=== PATIENT | male | born 1985 | race Caucasian/White ===

== ENCOUNTER 2020-07-09 02:41 | Outpatient (CLI) | payer OTHER, SELFPAY ==
[2020-07-09 23:12] LABS: SARS-CoV-2 RNA PCR Negative
== END 2020-07-09 02:42 | disposition home or self-care (01) ==
LOC: ANHCOVIDDT 02:41
PROVIDERS: PCP Family Medicine; Visit Provider Internal Medicine Gastroenterology
DX: Z01.812 Encounter for preprocedural laboratory examination (principal); Z20.828 Contact with and (suspected) exposure to other viral communicable diseases
CPT/HCPCS: 87635; C9803; U0003

== ENCOUNTER 2020-07-12 01:05 | Day surgery (SDC) | payer OTHER, SELFPAY ==
[2020-07-05 16:02] VITALS: BMI 40.2
[2020-07-12 09:58] VITALS: BP 149/91; PULSE 61; RESP 16; TEMP 36.3; O2SAT 98; BMI 42.5
[2020-07-12] MEDS: LACTATED RINGERS 1,000 ML 150 ML IV CONT (10:07)
--- NOTE | 2020-07-12 10:23 | P.PNAN_ITS ---
Anes - Initial Pre Proc Eval Procedure: Operation Date: 07/12/20 11:00 Proposed Procedures p Colonoscopy - Chago Sanchez MD Date/Time: 07/12/20 10:23 Surgeon: Chago Sanchez MD Pre Op Diagnosis: Change In Bowel Habits/ Rectal Bleeding Patient Data Age: 35 Gender: M Height: 5 ft 10 in Weight: 134.4 kg Last Vital Signs Temp 36.3 C L 07/12/20 09:58 Pulse 61 07/12/20 09:58 Resp 16 07/12/20 09:58 BP 149/91 H 07/12/20 09:58 Pulse Ox 98 07/12/20 09:58 Allergies Allergy/AdvReac Type Severity Reaction Status Date / Time No Known Allergies Allergy Verified 07/12/20 09:57 Home Medications Medication Instructions Recorded Confirmed Type lorazepam 0.5 mg tablet 0.5 mg PO BID PRN 08/15/19 07/05/20 History citalopram 10 mg tablet See Rx Instructions .ROUTE 02/06/20 07/05/20 Rx .COMPLEX #90 tablet lisinopril 20 See Rx Instructions .ROUTE 04/20/20 07/05/20 Rx mg-hydrochlorothiazide 12.5 mg .COMPLEX #90 tablet tablet pantoprazole 40 mg tablet,delayed See Rx Instructions .ROUTE 05/07/20 07/05/20 Rx release .COMPLEX #90 tablet Patient hx anesthesia problems: none Family hx anesthesia problems: none PMFSH Past Medical History Medical History Anxiety Colitis GERD (gastroesophageal reflux disease) HTN (hypertension) Panic attacks Surgical History Surgical History History of colonoscopy [place] teeth extracted 2005 Family History Family History Father Diabetes mellitus Social History Social History Years smoked: 6 Smoking status: Current every day smoker Tobacco type: e-cigarettes/vaping Smoking end date: 10/01/12 Additional smoking assessment comments: VAPS DAILY Alcohol intake: current Drinks per week: 14 Substance use: never Substance use type: does not use Living arrangements: with family Gender identity (if verbalized by the patient): Male Spiritual care concerns: No Anes - Eval Final PreProcedure Day of Procedure 07/12/20 10:23 Patient weight: morbidly obese Heart: regular rate and rhythm Lungs: clear to auscultation Airway: Mallampati scale class 1 Neurological: alert and oriented Last oral intake: >/= 8 hours ASA classification: III Emergent: no Anesthetic plan: proceed Anesthesia type and monitoring: general GIVS and standard monitoring Informed Consent: The patient's anesthetic plan and its attendant risks and benefits were discussed with the patient/family/POA. Questions were solicited and answers provided to the satisfaction of the patient/family/POA.
--- NOTE | 2020-07-12 10:38 | WPDGICN ---
Assessment and Plan Assessment and plan (1) Rectal bleeding: Code(s): K62.5 - Hemorrhage of anus and rectum Status: Acute Assessment and Plan: Etiology for rectal bleeding uncertain. Hemorrhoids appear most likely. Patient gives a questionable history of ulcerative colitis. And recently has had loose stools. Plan is for fiber supplements. A colonoscopy to further define the nature of his bleeding and abdominal complaints will be arranged. (2) Change in bowel habit: Code(s): R19.4 - Change in bowel habit Status: Acute GI Consult Note Consult date/time: 07/12/20 10:38 HPI: Yo Woodruff is a 35 year old male Seen in evaluation at the request of Dr. Duran. patient complains of a change in bowel habits. He describes ribbon like stools for last 3-4 months. He also notices abdominal pain before bowel movement that improves after a bowel. He does report minimal bright red blood per rectum typically noticed on the toilet paper. He has loose stools that previously several weeks ago was diarrhea in nature. Patient has a distant history that he was informed he had ulcerative colitis . However he was never treated with medications making this suspect. Review of Systems Review of Systems: All systems reviewed & are unremarkable except as noted in HPI and below PMFSH Past Medical History Medical History Anxiety Colitis GERD (gastroesophageal reflux disease) HTN (hypertension) Panic attacks Surgical History Surgical History History of colonoscopy [place] teeth extracted 2005 Family History Family History Father Diabetes mellitus Social History Social History Years smoked: 6 Smoking status: Current every day smoker Tobacco type: e-cigarettes/vaping Smoking end date: 10/01/12 Additional smoking assessment comments: VAPS DAILY Alcohol intake: current Drinks per week: 14 Substance use: never Substance use type: does not use Living arrangements: with family Gender identity (if verbalized by the patient): Male Spiritual care concerns: No Meds Home Medications and Allergies Home Medications Medication Instructions Recorded Confirmed Type lorazepam 0.5 mg tablet 0.5 mg PO BID PRN 08/15/19 07/05/20 History citalopram 10 mg tablet See Rx Instructions .ROUTE 02/06/20 07/05/20 Rx .COMPLEX #90 tablet lisinopril 20 See Rx Instructions .ROUTE 04/20/20 07/05/20 Rx mg-hydrochlorothiazide 12.5 mg .COMPLEX #90 tablet tablet pantoprazole 40 mg tablet,delayed See Rx Instructions .ROUTE 05/07/20 07/05/20 Rx release .COMPLEX #90 tablet Allergies Allergy/AdvReac Type Severity Reaction Status Date / Time No Known Allergies Allergy Verified 07/12/20 09:57 Vital Signs Vital Signs - 24 hr 07/12/20 09:58 Temperature 97.3 F L Pulse Rate 61 Respiratory Rate 16 Blood Pressure 149/91 H Pulse Oximetry 98 Exam Narrative: Exam Narrative: Physical exam reveals patient to be alert. Vital signs stable. HEENT exam unremarkable. Lungs are clear to auscultation and percussion. Heart is without murmur. Abdomen is mildly obese. Bowel sounds are present soft no localized tenderness. No masses noted. Digital external rectal exam is normal.
[2020-07-12 11:24] VITALS: BP 127/73; PULSE 62; RESP 20; O2SAT 98
[2020-07-12 11:34] VITALS: BP 135/74; PULSE 55; RESP 21; O2SAT 97
[2020-07-12 11:44] VITALS: BP 141/76; PULSE 53; RESP 19; O2SAT 99
== END 2020-07-12 11:58 | disposition home or self-care (01) ==
PROVIDERS: PCP Family Medicine; Visit Provider Internal Medicine Gastroenterology
PROC: 0DJD8ZZ Inspection of Lower Intestinal Tract, Via Natural or Artificial Opening Endoscopic (ICD-10-PCS; CPT 45378; principal; 2020-07-12 11:00)
DX: K51.00 Ulcerative (chronic) pancolitis without complications (principal); I10 Essential (primary) hypertension; K21.9 Gastro-esophageal reflux disease without esophagitis; F41.9 Anxiety disorder, unspecified; F17.290 Nicotine dependence, other tobacco product, uncomplicated; E66.01 Morbid (severe) obesity due to excess calories; Z68.41 Body mass index [BMI] 40.0-44.9, adult
CPT/HCPCS: 45380; 88305; J2704; J7120

== ENCOUNTER 2020-10-20 11:40 | Inpatient (IN) | payer OTHER, SELFPAY ==
[2020-10-20] VITALS (20 sets, daily range): BP systolic 92–137; BP diastolic 47–87; PULSE 65–87; RESP 16–26; TEMP 36.4–37.9; O2SAT 96–99; BMI 41.9
--- NOTE | ~2020-10-20 | CT_ITS ---
EXAMINATION: CT abdomen pelvis w con DATE: 10/20/2020 13:28 INDICATION: Lower abdominal pain and presyncope. TECHNIQUE: Computed tomography (CT) of the abdomen and pelvis was performed with 100 mL Omnipaque-350 intravenous contrast. Automated exposure control and iterative reconstruction technique were employe d. The dose-length product was 1645.87 mGy-cm. COMPARISON: None FINDINGS: Lung bases are clear. Heart size is normal. No pericardial or pleural effusion. Focal hepatic steatos is at the ligamentum teres. Indeterminate 8 mm subtly hypodense lesion in the right hepatic lobe. Gal lbladder, spleen, pancreas, bilateral adrenal glands are normal. 2 mm nonobstructing stone at the inf erior calyx of the right kidney. 1.7 cm likely complex cystic lesion in the left kidney with mean att enuation consistent with fluid but with subtle internal heterogeneity and could not exclude a small i nternal septation, potentially enhancing. There is diffuse colonic wall thickening along with mild hy peremia of the associated vasa recta consistent with colitis. No pneumatosis or portal venous gas. Sm all bowel and appendix are normal. Bladder is normal. No abscess or free intraperitoneal gas or fluid . Mild likely reactive mesenteric lymphadenopathy more notable for lymph node number than size. Mild lower thoracic spondylosis. IMPRESSION: 1. Diffuse colitis with differential in order of decreasing likelihood including infectious, inflamma tory or ischemic etiologies. 2. Indeterminate 8 mm hypodense lesion in the right hepatic lobe and 1.7 cm possibly complex cystic l esion in the left kidney. Both lesions could be further evaluated at the same time with pre and postc ontrast MRI which would be recommended. Reviewed, dictated and finalized at location A. ING INSPECTOR IMPRESSION: 1. Diffuse colitis with differential in order of decreasing likelihood includin g infectious, inflammatory or ischemic etiologies. 2. Indeterminate 8 mm hypodense lesion in the right hepatic lobe and 1.7 cm pos sibly complex cystic lesion in the left kidney. Both lesions could be further e valuated at the same time with pre and postcontrast MRI which would be recommen ded.
[2020-10-20 12:01] LABS: Hemoglobin 14.2 g/dL (14.0-18.0); Mean Corpuscular HGB Conc 32.3 g/dl (32-36); Mean Corpuscular Hemoglobin 27.8 pg (26-34); Mean Corpuscular Volume 86.3 fl (80-100); Mean Platelet Volume 8.9 fl (7.4-10.4); Platelet Count Result 567 k/mm3 (150-375); Red Cell Distribution Width 13.2 % (11.5-14.5); White Blood Count 21.5 K/mm3 (4.5-10.0)
[2020-10-20 12:12] LABS: Eosinophils Absolute Manual 0.43 K/mm3 (0.02-0.5); Eosinophils Percent Manual 2 % (0-4); Lymphocytes Absolute Manual 3.44 K/mm3 (1.1-4.5); Monocytes Absolute Manual 1.72 K/mm3 (0.1-0.90); Monocytes Percent Manual 8 % (3-9); Neutrophils Percent Manual 74 % (46-73); Total Cells Counted 100
[2020-10-20 12:13] LABS: Platelet Estimate Increased (Adequate); Tear Drop Cells 1+ (NORMAL)
[2020-10-20 12:14] LABS: Alanine Aminotransferase 23 U/L (4-50); Albumin Level 4.1 g/dL (3.5-5.1); Alkaline Phosphatase 76 U/L (38-126); Anion Gap 8 mmol/L (8-16); Aspartate Amino Transferase 18 U/L (17-59); Bilirubin,Total 0.5 mg/dL (0.2-1.3); Blood Urea Nitrogen 14 mg/dL (9-20); Calcium 9.2 mg/dL (8.4-10.2); Carbon Dioxide 26 mmol/L (22-30); Chloride 101 mmol/L (98-107); Estimated CRCL calculation 124 ml/min; Estimated Glomerular Filt Rate > 60; Glucose 124 mg/dL (75-110); Lipase 145 U/L (23-300); Microcytosis 1+ (NORMAL); Potassium 3.8 mmol/L (3.4-5.0); Sodium 135 mmol/L (137-145)
[2020-10-20] MEDS: SODIUM CHLORIDE 0.9% IV 1,000 ML 999 ML IV CONT (12:20)
--- NOTE | 2020-10-20 12:34 | ED.GENADULT ---
HPI - General Adult General Chief complaint: Abdominal Pain Stated complaint: . Time Seen by Provider: 10/20/20 11:47 History of Present Illness HPI narrative: Patient is a 35-year-old male who presents ER with near syncope. 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 Due to his weakness and symptoms he was sent to the ER for evaluation. Patient has history of Crohn's disease. Was started on mesalamine by Dr. Sanchez July of last year. Reports since then he has been having what he describes as 1 constant Crohn's flare. Over the last 2 weeks he started having 6-10 small loose stools a day. Occasional blood streaking. No large amounts of blood passing from the rectum. Denies fevers/chest pain/shortness of breath. Related Data Home Medications Medication Instructions Recorded Confirmed citalopram 10 mg PO DAILY 10/20/20 10/20/20 lisinopril-hydrochlorothiazide 1 tablet PO DAILY 10/20/20 10/20/20 mesalamine 4.8 g PO DAILY 10/20/20 10/20/20 pantoprazole 40 mg PO DAILY 10/20/20 10/20/20 Allergies Allergy/AdvReac Type Severity Reaction Status Date / Time No Known Allergies Allergy Verified 10/20/20 11:48 Review of Systems Constitutional: Constitutional: Denies chills, Denies fever(s) and Reports weakness ENT: Denies nasal congestion and Denies sore throat Cardiovascular: Cardiovascular: Denies chest pain and Denies radiating jaw, neck or arm pain Respiratory: Respiratory: Denies cough, Denies dyspnea and Denies wheezing Gastrointestinal: Gastrointestinal: Reports abdominal pain, Reports diarrhea, Denies nausea and Denies vomiting Neurologic: Reports dizziness, Denies focal weakness and Denies numbness PMF Past Medical History Medical History (Updated 10/20/20 @ 18:30 by Usama Joaquin MD) Anxiety Colitis GERD (gastroesophageal reflux disease) HTN (hypertension) Panic attacks Surgical History Surgical History History of colonoscopy [place] teeth extracted 2005 Family History Family History Father Diabetes mellitus Social History Social History (Updated 10/20/20 @ 17:50 by Loren Martinez NP) Social History: 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 They are expecting their 1st child now. The patient desires to be a full code. Patient continues to use E cigarettes/vaping. 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 He denies any alcohol marijuana or illicit drugs. Years smoked: 6 Smoking status: Current every day smoker Tobacco type: e-cigarettes/vaping Smoking end date: 10/01/12 Additional smoking assessment comments: VAPS DAILY Alcohol intake: former Drinks per week: 14 Substance use: never Substance use type: does not use Gender identity (if verbalized by the patient): Male Spiritual care concerns: No Exam Narrative: Exam Narrative: GENERAL: Well-appearing, well-nourished, and in no acute distress. HEAD: Normocephalic, atraumatic. CHEST: Clear to auscultation. No respiratory distress. HEART: Regular rate and rhythm. Normal peripheral pulses. ABDOMEN: Soft, mild BLQ tederness w/guarding, nondistended EXTREMITIES: Normal range of motion. No edema. SKIN: Warm, dry, no rash. NEURO: No focal deficits. Alert and oriented x3. PSYCH: Normal mood and affect. Course Course Emergency Course: Patient did not initially determine the need his prednisone for joint been on regimen. Had discussed case with Dr. Sanchez. Admit for Fatima. We will get stool studies. Will start on Zosyn given outpatient failure of prednisone and Flagyl. Vital Signs Vital signs: Vital Signs Temperature 98.6 F 10/20/20 11:42 Pulse Rate 82 10/20/20 11:42 Respiratory Rate 20 10/20/20 11:42 Blood Pressure 122
[2020-10-20 14:18] LABS: Add Urine Microscopic? NO; Appearance Urine Clear (Clear); Bilirubin Urine Negative (Negative); Blood Urine Negative (Negative); Color Urine Straw (Yellow); Glucose Urine UA Negative (Negative); Ketones Urine Negative (Negative); Leukocyte Esterase Ur Negative LEU/UL (Negative); Nitrate Urine Negative (Negative); Protein Urine Negative (Negative); Urobilinogen Urine Negative mg/dL (<2.0)
[2020-10-20 14:22] LABS: Specific Grav Ur 1.047 (1.001-1.035)
--- NOTE | 2020-10-20 17:33 | PM.IMHP ---
H&P: HPI History of Present Illness Date/Time: 10/20/20 17:33 Chief Complaint: Near-syncope Narrative: Yo Woodruff is a 35 year old male who has a history of ulcerative colitis. The patient saw Dr. staples in the office on 10/13/2020 this was after had a flare-up over the weekend. The patient had a change in bowel habits July 2020 he had narrowed stools he had bright red blood per rectum patient had similar occurrence several years ago but resolved spontaneously. The patient began to have loose stools approximately week and half prior to seeing Dr. staples. The patient started to have the loose stools 3-4 days after he had his 1st COVID vaccine. The patient had called the on-call GI specialist Dr. Anand in the prior week and is seeing Dr. staples. The patient was prescribed prednisone 40 mg daily which was taken for 3-4 days as well as Flagyl 250 mg t.i.d.. Patient continues to take liada. The patient was at work today when a rapid response was called. 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 Due to his weakness and his symptoms he was sent to the emergency room. On 07/12/2020 which was read as ulcerative chronic ngo colitis without complications. Appears to involve the whole colon but most inflamed in descending and sigmoid colon. He has been having blood in his stool knee at a near syncopal episode today. The patient was started on IV fluids and Zosyn. Since the patient recently was on prednisone and Flagyl outpatient. As diffuse colitis with differential an order by descending likelihood including infectious inflammatory ischemic etiologies. Indeterminate 8 mm hypodense lesion in the right hepatic lobe 1.7 cm possibly complex cystic lesion of the left kidney both lesions could be further evaluated the same time with a pre and post contrast MRI which would be recommended. 21.5 and platelets 567. The patient is being admitted to observation on the date of service of 10/20/2020. Review of Systems Review of Systems: All systems reviewed & are unremarkable except as noted in HPI and below Constitutional: Constitutional: Reports as per HPI and Reports no additional constitutional complaints Eyes: Eyes: Reports as per HPI and Reports no additional eye complaints ENT: Reports system reviewed and no additional complaints, except as documented and Reports Normal hearing present Cardiovascular: Cardiovascular: Reports no additional cardiovascular complaints Respiratory: Respiratory: Reports no additional respiratory complaints and Reports no additional respiratory complaints Gastrointestinal: Gastrointestinal: Reports as per HPI and Reports no additional gastrointestinal complaints Musculoskeletal: Musculoskeletal: Reports no additional musculoskeletal complaints Integumentary/Breasts: Skin/Breast: Reports system reviewed and no additional complaints, except as docu and Reports as per HPI Neurologic: Reports system reviewed and no additional complaints, except as documented, Reports as per HPI and Reports Normal hearing present Psychiatric: Psychiatric: Reports no additional psychiatric complaints and Reports as per HPI Endocrine: Endocrine: Reports no additional endocrine complaints Hematologic/Lymphatic: Hematologic/Lymphatic: Reports no additional hematologic/lymphatic complaints Allergic/Immunologic: Allergic/Immunologic: Reports no additional allergic/immunologic complaints PMF Past Medical History Medical History Anxiety Colitis GERD (gastroesophageal reflux disease) HTN (hypertension) Panic attacks Surgical History Surgical History History of colonoscopy [place] teeth extracted 2005 Family History Family History Father Diabetes mellitus Social History Social History (Updated 10/20
--- NOTE | 2020-10-20 17:40 | PC.NURSE ---
This patient, Yo Woodruff, was admitted to Medical Room 340-01. Patient/family oriented to hospital policies and general routines including ID bracelet, bed and alarms, visiting hours, pain management, procedures, bathroom and other care routines, personal items, smoking policy, room service/diet, and visiting hours. Information on how to activate the Rapid Response Team has been discussed. Patient/Family are encouraged to report perceived risks to care and to ask questions if they do not understand what they are told or what they should do.
[2020-10-20] MEDS: SODIUM CHLORIDE 0.9% IV 1,000 ML 125 ML IV CONT (17:46)
[2020-10-20 18:28] LABS: Hematocrit 39.3 % (42.0-52.0); Hemoglobin 12.6 g/dL (14.0-18.0)
[2020-10-20] MEDS: ACETAMINOPHEN 325 MG TABLET 650 MG PO (19:28)
[2020-10-21 01:31] LABS: Hematocrit 38.5 % (42.0-52.0); Hemoglobin 12.4 g/dL (14.0-18.0)
[2020-10-21] MEDS: SODIUM CHLORIDE 0.9% IV 1,000 ML 125 ML IV CONT (02:22)
[2020-10-21 05:39] LABS: Basophils Absolute Auto 0.1 K/mm3 (0.0-0.1); Basophils Percent Auto 0.5 % (0.2-1.2); Eosinophils Absolute Auto 0.7 K/mm3 (0-0.3); Eosinophils Percent Auto 4.8 % (0-4.4); Hematocrit 38.4 % (42.0-52.0); Hemoglobin 12.5 g/dL (14.0-18.0); Immature Granulocyte Absolute 0.11 K/mm3 (0.00-0.031); Immature Granulocyte Percent A 0.8 % (0-0.5); Lymphocytes Absolute Auto 1.15 K/mm3 (0.9-3.2); Lymphocytes Percent Auto 7.9 % (18.3-44.2); Mean Corpuscular HGB Conc 32.6 g/dl (32-36); Mean Corpuscular Hemoglobin 28.4 pg (26-34); Mean Corpuscular Volume 87.3 fl (80-100); Mean Platelet Volume 8.8 fl (7.4-10.4); Monocytes Absolute Auto 0.9 K/mm3 (0.1-0.6); Neutrophils Absolute Auto 11.7 K/mm3 (1.3-6.7); Platelet Count Result 398 k/mm3 (150-375); Red Cell Distribution Width 13.4 % (11.5-14.5); White Blood Count 14.6 K/mm3 (4.5-10.0)
[2020-10-21 05:47] LABS: Lactic Acid Reflex 0.5 mmol/L (0.7-2.1)
[2020-10-21 05:49] LABS: Alanine Aminotransferase 17 U/L (4-50); Albumin Level 3.2 g/dL (3.5-5.1); Alkaline Phosphatase 62 U/L (38-126); Anion Gap 2 mmol/L (8-16); Aspartate Amino Transferase 14 U/L (17-59); Bilirubin,Total 0.5 mg/dL (0.2-1.3); Blood Urea Nitrogen 9 mg/dL (9-20); Calcium 8.1 mg/dL (8.4-10.2); Carbon Dioxide 26 mmol/L (22-30); Chloride 106 mmol/L (98-107); Estimated CRCL calculation 151 ml/min; Estimated Glomerular Filt Rate > 60; Glucose 99 mg/dL (75-110); Lactate Dehydrogenase 300 U/L (313-618); Lipase 82 U/L (23-300); Magnesium 1.9 mg/dL (1.6-2.3); Potassium 3.9 mmol/L (3.4-5.0); Sodium 134 mmol/L (137-145)
[2020-10-21 05:56] VITALS: BP 149/71; PULSE 72; RESP 18; TEMP 36.3; O2SAT 98
[2020-10-21 08:00] VITALS: BP 142/77; PULSE 62; RESP 16; TEMP 36.1; O2SAT 98
[2020-10-21] MEDS: CITALOPRAM HYDROBROMIDE 10 MG TABLET PO (08:13)
[2020-10-21] MEDS: PANTOPRAZOLE 40 MG TABLET PO (08:13)
--- NOTE | 2020-10-21 09:25 | WPDGICN ---
Assessment and Plan Assessment and plan (1) Ulcerative colitis: Code(s): K51.90 - Ulcerative colitis, unspecified, without complications Status: Acute Assessment and Plan: Patient appears to have a flare of ulcerative colitis with diarrhea abdominal pain and small amount of rectal bleeding. Plan is for IV Solu-Medrol. Lialda mesalamine product will be continued. Antibiotics to include Levaquin will be implemented. Stool cultures have been obtained and will be reviewed when available. When diarrhea has lessened than changing to oral steroids such as prednisone in a day or 2 is advised. With slow taper subsequently. Patient should avoid nonsteroidal anti-inflammatory agents. Diet will be allowed as tolerated. (2) Rectal bleeding: Code(s): K62.5 - Hemorrhage of anus and rectum Status: Acute (3) Anxiety: Code(s): F41.9 - Anxiety disorder, unspecified Status: Chronic GI Consult Note Consult date/time: 10/21/20 09:25 HPI: Yo Woodruff is a 35 year old male Seen in evaluation at the request of the ER. Patient has a history of ulcerative colitis diagnosed by colonoscopy in July of 2020. Patient did well on mesalamine until receiving his COVID vaccine several weeks ago. Since that time has had increasing diarrhea. Lower abdominal pain and blood in his stools. Approximately 2 weeks ago he was started on a trial of Flagyl and steroids because of a flare of his disease. Abdominal pain has improved but diarrhea and small amount of blood tinged stool has persisted. Yesterday patient became lightheaded woozy and had a near syncopal episode. For this reason he was sent to the emergency room. A CT scan confirmed pancolitis. Patient now admitted for IV fluid rehydration and further therapy. 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 They are expecting their 1st child now. The patient desires to be a full code. Patient continues to use E cigarettes/vaping. 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. He denies any alcohol marijuana or illicit drugs. Years smoked: 6 Smoking status: Current every day smoker Tobacco type: e-cigarettes/vaping Smoking end date: 10/01/12 Additional smoking assessment comments: VAPS DAILY Alcohol intake: former Drinks per week: 14 Substance use: never Substance use type: does not use Gender identity (if verbalized by the patient): Male Spiritual care concerns: No Meds Home Medications and Allergies Home Medications Medication Instructions Recorded Confirmed Type citalopram 10 mg PO DAILY 10/20/20 10/20/20 History lisinopril-hydrochlorothiazide 1 tablet PO DAILY 10/20/20 10/20/20 History mesalamine 4.8 g PO DAILY 10/20/20 10/20/20 History pantoprazole 40 mg PO DAILY 10/20/20 10/20/20 History Allergies Allergy/AdvReac Type Severity Reaction Status Date / Time No Known Allergies Allergy Verified 10/20/20 11:48 Vital Signs Vital Signs - 24 hr 10/20/20 11:42 10/20/20 11:43 10/20/20 11:45 Temperature 98.6 F Pulse Rate 82 79 79 Respiratory Rate 20 19 18 Blood Pressure 122/87 Pulse Oximetry 98 10/20/20 11:46 10/20/20 12:00 10/20/20 12:01 Temperature Pulse Rate 79 66 69 Respiratory Rate 16
[2020-10-21 12:00] VITALS: BP 138/75; PULSE 66; RESP 16; TEMP 36.1; O2SAT 98
[2020-10-21 12:09] LABS: Hematocrit 38.6 % (42.0-52.0); Hemoglobin 12.5 g/dL (14.0-18.0)
--- NOTE | 2020-10-21 12:14 | PM.IMPN ---
Progress Note: A&P Assessment and Plan (1) Ulcerative colitis: Code(s): K51.90 - Ulcerative colitis, unspecified, without complications Status: Acute Assessment and Plan: Patient is undergoing a UC exacerbation likely due to immune response from the COVID-19 vaccine -CT showing colitis, await stool studies. The only antibiotic he has been on the last couple months is Flagyl -will start Solu-Medrol, Levaquin, and continue mesalamine (his is bringing this from home) -will watch for QT prolongation since he is on Celexa and Zofran as well. EKG in the morning -he is eating and drinking well, will stop IV fluids -GI consult, appreciate his recommendations (2) HTN (hypertension): Code(s): I10 - Essential (primary) hypertension Status: Chronic Assessment and Plan: Last blood pressure 142/77 -patient has been persistently elevated and has been intermittently elevated in the past -I am going to restart his lisinopril/hydrochlorothiazide (3) Anxiety: Code(s): F41.9 - Anxiety disorder, unspecified Status: Chronic Assessment and Plan: No acute symptoms - Continue with Celexa (4) Rectal bleeding: Code(s): K62.5 - Hemorrhage of anus and rectum Status: Acute Assessment and Plan: Hemoglobin has been stable -secondary to above (5) Abnormal CT of the abdomen: Code(s): R93.5 - Abnormal findings on diagnostic imaging of other abdominal regions, including retroperitoneum Status: Acute Assessment and Plan: CT of the abdomen pelvis shows intermediate 8 mm hypodense lesion in the right hepatic lobe and 1.7 cm complex cystic lesion in the left kidney -incidental finding -I will talk to the patient about this and plan to have him follow up for an outpatient MRI Time Spent With Patient Time with patient: 25 - 35 minutes Subjective Date/time seen: 10/21/20 12:14 Interval history: Pt is a 35-year-old male here for UC. Patient was seen today and states he continues to have intermittent abdominal pain and diarrhea with bloody stools. He has been eating and drinking okay and tolerated his breakfast. He denies chest pain, shortness of breath, fevers, chills, leg swelling, nausea or vomiting at this time. Review of Systems Review of Systems: All systems reviewed & are unremarkable except as noted in HPI and below Exam Narrative: Exam Narrative: General: Well developed well nourished patient in NAD HEENT: normocephalic Neck: supple Neuro: Alert and oriented x4 CV:RRR Resp:CTA Abd: Soft, non distended. Pain to palpation to the abdomen. Positive bowel sounds Extremities: No swelling, erythema, or pain to palpation. Objective Data Vital Signs Vital Signs: Vital Signs - 24 hr 10/20/20 12:15 10/20/20 12:16 10/20/20 12:17 Temperature Pulse Rate 83 84 75 Respiratory Rate 19 Blood Pressure 104/57 L 92/47 L Pulse Oximetry 10/20/20 12:30 10/20/20 12:31 10/20/20 12:45 Temperature Pulse Rate 66 66 69 Respiratory Rate 26 H 24 H 24 H Blood Pressure 126/52 L Pulse Oximetry 10/20/20 12:46 10/20/20 17:49 10/20/20 19:13 Temperature 97.5 F L 100.2 F H Pulse Rate 69 81 79 Respiratory Rate 23 H 16 17 Blood Pressure 129/60 137/69 129/64 Pulse Oximetry 99 96 10/20/20 19:28 10/20/20 20:28 10/20/20 23:25 Temperature 100.2 F H 99.6 F 97.7 F Pulse Rate 65 Respiratory Rate 18 Blood Pressure 129/63 Pulse Oximetry 99 10/21/20 05:56 10/21/20 08:00 Temperature 97.4 F L 97.0 F L Pulse Rate 72 62 Respiratory Rate 18 16 Blood Pressure 149/71 H 142/77 H Pulse Oximetry 98 98 Intake/Output Intake/Output: Intake & Output 10/18/20 10/19/20 10/20/20 10/21/20 23:59 23:59 23:59 23:59 Intake Total 1100 2190 Balance 1100 2190 Meds/Results Medications: Active Medications Generic Name Dose Route Start Last Admin Trade Name Freq PRN Reason Stop Dose Admin Acetamin
[2020-10-21] MEDS: hydroCHLOROthiazide 12.5 MG CAPSULE PO (13:01)
[2020-10-21] MEDS: lisinopriL 20 MG TABLET PO (13:02)
[2020-10-21] MEDS: methylPREDNISolone SOD SUCC 40 MG VIAL IV PUSH ×2 (13:49→21:42)
[2020-10-21 16:00] VITALS: BP 155/67; PULSE 63; RESP 16; TEMP 36.4; O2SAT 98
[2020-10-21] MEDS: ACETAMINOPHEN 325 MG TABLET 650 MG PO (18:52)
[2020-10-21 19:48] VITALS: BP 147/72; PULSE 65; RESP 18; TEMP 37.2; O2SAT 99
[2020-10-22] VITALS: BP 126/57; PULSE 61; RESP 18; TEMP 36.6; O2SAT 97
[2020-10-22 05:35] VITALS: BP 150/78; PULSE 73; RESP 17; TEMP 36.1; O2SAT 98
[2020-10-22] MEDS: methylPREDNISolone SOD SUCC 40 MG VIAL IV PUSH (05:38)
[2020-10-22 05:54] LABS: Hematocrit 40.3 % (42.0-52.0); Mean Corpuscular HGB Conc 32.3 g/dl (32-36); Mean Corpuscular Volume 86.7 fl (80-100); Mean Platelet Volume 8.9 fl (7.4-10.4); Platelet Count Result 433 k/mm3 (150-375); Red Blood Count 4.65 M/mm3 (4.6-6.20); Red Cell Distribution Width 13.2 % (11.5-14.5); White Blood Count 18.4 K/mm3 (4.5-10.0)
[2020-10-22 06:17] LABS: Anion Gap 3 mmol/L (8-16); Blood Urea Nitrogen 9 mg/dL (9-20); CRP 3.7 mg/dL (<1.0); Calcium 8.9 mg/dL (8.4-10.2); Carbon Dioxide 29 mmol/L (22-30); Chloride 105 mmol/L (98-107); Estimated CRCL calculation 196 ml/min; Estimated Glomerular Filt Rate > 60; Glucose 135 mg/dL (75-110); Potassium 4.7 mmol/L (3.4-5.0); Sodium 137 mmol/L (137-145)
[2020-10-22 08:00] VITALS: BP 155/87; PULSE 66; RESP 16; TEMP 36.1; O2SAT 98
--- NOTE | 2020-10-22 08:00 | ECG_ITS ---
Measurements Intervals [place] Rate: 74 P: 43 CO: 171 QRS: 24 QRSD: 114 T: 26 QT: 372 QTc: 413 Interpretive Statements SINUS RHYTHM INCOMPLETE RIGHT BUNDLE BRANCH BLOCK BASELINE ARTIFACT- I, III, AVR, AVL, AVF BORDERLINE ECG Electronically Signed On 10-22-2020 9:19:03 BATCH MIXER OPERATOR by Phil Self D.O.
[2020-10-22] MEDS: hydroCHLOROthiazide 12.5 MG CAPSULE PO (09:02)
[2020-10-22] MEDS: CITALOPRAM HYDROBROMIDE 10 MG TABLET PO (09:02)
[2020-10-22] MEDS: PANTOPRAZOLE 40 MG TABLET PO (09:02)
[2020-10-22] MEDS: lisinopriL 20 MG TABLET PO (09:02)
--- NOTE | 2020-10-22 09:59 | WPDGIPROGNO ---
Progress Note: A&P Assessment and Plan (1) Ulcerative colitis: Code(s): K51.90 - Ulcerative colitis, unspecified, without complications Status: Acute Assessment and Plan: Patient with known ulcerative colitis. Appears to have had a flare over the last several weeks. Perhaps related to recent vaccine injection. Patient still has diarrhea stools with small on blood in stools. Plan to transition to oral prednisone over the next 24 hours. Continue regular diet. Continue Lialda 4.8 g p.o. daily. Patient will remain on trial of Levaquin or equivalent antibiotic for 1 week trial. Stool cultures are pending. After discharge anticipate follow-up in the office in 1-2 weeks. Steroid taper is anticipated after discharge. (2) Anxiety: Code(s): F41.9 - Anxiety disorder, unspecified Status: Chronic Subjective Date/time seen: 10/22/20 09:59 Patient states he feels better. Continues to have diarrhea stools but much less frequently. Only a small amount of blood noted in stools. He denies abdominal pain. Review of Systems Review of Systems: All systems reviewed & are unremarkable except as noted in HPI and below Exam Narrative: Exam Narrative: Physical exam reveals patient to be alert and comfortable at rest. HEENT exam unremarkable. He is anicteric. Lungs are clear. Heart without murmur. Abdomen is obese bowel sounds are present soft and nontender. Objective Data Vital Signs Vital Signs: Vital Signs - 24 hr 10/21/20 12:00 10/21/20 16:00 10/21/20 19:48 Temperature 96.9 F L 97.5 F L 98.9 F Pulse Rate 66 63 65 Respiratory Rate 16 16 18 Blood Pressure 138/75 155/67 H 147/72 H Pulse Oximetry 98 98 99 10/22/20 00:00 10/22/20 05:35 10/22/20 08:00 Temperature 98 F 97 F L 97.0 F L Pulse Rate 61 73 66 Respiratory Rate 18 17 16 Blood Pressure 126/57 L 150/78 H 155/87 H Pulse Oximetry 97 98 98 Intake/Output Intake/Output: Intake & Output 10/19/20 10/20/20 10/21/20 10/22/20 23:59 23:59 23:59 23:59 Intake Total 1100 3720 490 Balance 1100 3720 490 Meds/Results Medications: Active Medications Generic Name Dose Route Start Last Admin Trade Name Freq PRN Reason Stop Dose Admin Acetaminophen 650 mg 10/20/20 14:56 10/21/20 18:52 Acetaminophen 325 Mg Tablet PO 650 mg Q4H PRN Administration Mild Pain (1-3) or Fever Hydrocodone Bitart/Acetaminophen 1 tab 10/20/20 14:56 Hydrocodone/Acetaminophen (*Crx) 5-325 Mg Tablet PO Q4H PRN Pain Rated 4-6 Citalopram Hydrobromide 10 mg 10/21/20 09:00 10/22/20 09:02 Citalopram Hydrobromide 10 Mg Tablet PO 10 mg DAILY CAIO Administration Hydrochlorothiazide 12.5 mg 10/21/20 09:00 10/22/20 09:02 Hydrochlorothiazide 12.5 Mg Capsule PO 12.5 mg DAILY CAIO Administration Levofloxacin/Dextrose 750 mg in 150 mls @ 100 mls/hr 10/21/20 09:30 10/22/20 09:06 Levaquin 750 Mg/D5w 150 Ml IVPB 100 mls/hr DAILY CAIO Administration Lisinopril 20 mg 10/21/20 09:00 10/22/20 09:02 Lisinopril 20 Mg Tablet PO 11/21/20 09:01 20 mg DAILY CAIO Administration Methylprednisolone Sodium Succinate 40 mg 10/21/20 14:00 10/22/20 05:38 Methylprednisolone Sod Succ 40 Mg Vial IV PUSH 40 mg Q8HR CAIO Administration Morphine Sulfate 4 mg 10/20/20 14:56 Morphine Sulfate (*Crx) 4 Mg/Ml Inj IV PUSH Q2H PRN Pain Rated 7-10 Non-Formulary Medication 4.8 gm 10/21/20 09:00 Mesalamine PO 11/20/20 09:01 DAILY [facility] Ondansetron HCl 4 mg 10/20/20 14:56 Ondansetron Inj 4 Mg/2 Ml Vial IV PUSH Q4H PRN Nausea Pantoprazole Sodium 40 mg 10/21/20 09:00 10/22/20 09:02 Pantoprazole 40 Mg Tablet PO 40 mg DAILY CAIO Administration Radiology Results: ITS Impressions Abdomen/Pelvis CT 10/20/20 13:29 IMPRESSION: 1. Diffuse colitis with differential in order of decreasing likelihood including infectious, inflammatory or ischemic etiologies. 2. Indeterminate 8 mm hy
--- NOTE | 2020-10-22 11:12 | PM.DS ---
DS: Admitting Diagnosis Admitting Diagnosis Admitting Diagnosis: Ulcerative colitis exacerbation DS: Discharge Diagnosis Discharge Diagnosis (1) Ulcerative colitis: Code(s): K51.90 - Ulcerative colitis, unspecified, without complications Status: Acute Assessment and Plan: Patient is undergoing a UC exacerbation likely due to immune response from the COVID-19 vaccine -CT showing colitis. C diff, E coli Shiga, Cryptosporidium, and Giardia negative. -patient improved on Solu-Medrol and Levaquin as well as his home mesalamine -plan to do a prolonged steroid taper outpatient and follow-up with GI -patient's symptoms have resolved the day of discharge and he had not had diarrhea in 12 hours with no abdominal pain -continue 6 days of oral Levaquin, repeat EKG shows a normal QTC (2) HTN (hypertension): Code(s): I10 - Essential (primary) hypertension Status: Chronic Assessment and Plan: Last blood pressure 155/87 before his home medications -continue home lisinopril/hydrochlorothiazide (3) Anxiety: Code(s): F41.9 - Anxiety disorder, unspecified Status: Chronic Assessment and Plan: No acute symptoms - Continue with Celexa (4) Rectal bleeding: Code(s): K62.5 - Hemorrhage of anus and rectum Status: Acute Assessment and Plan: Resolved -hemoglobin remained stable (5) Abnormal CT of the abdomen: Code(s): R93.5 - Abnormal findings on diagnostic imaging of other abdominal regions, including retroperitoneum Status: Acute Assessment and Plan: CT of the abdomen pelvis shows intermediate 8 mm hypodense lesion in the right hepatic lobe and 1.7 cm complex cystic lesion in the left kidney -incidental finding -I spoke with him about these findings and he is going to follow up for an outpatient MRI DS: Summary Hospital Course Hospital Course: Patient is a 35-year-old male who presented the emergency room for near syncope due to weakness and diarrhea due to his ulcerative colitis. Vitals in the ER were temperature 98.6?, pulse 82, respiratory rate 20, blood pressure 122/87, pulse ox 98 on room air. Hemoglobin stable at 12.6. CT of the abdomen pelvis showed diffuse colitis. He also had an 8 mm hypodense lesion in the right hepatic lobe and 1.7 cm complex cyst on his left kidney. Please see above for further details on those. The patient was admitted to the hospitalist service and started on Zosyn but was changed to Levaquin. He was also put on IV steroids and he did great on this regimen. The day of discharge he was having no further diarrhea and no abdominal pain. He felt back to baseline and was up walking around. He was eager for discharge and wanted to transition to oral steroids. I spoke with Dr. Sanchez who agrees with discharge and is going to follow him outpatient. Most of his stool studies were negative as stated above but I will continue to watch all the until they are finalized. He is to follow-up with his primary care physician to get a abdominal MRI. He was educated about the worrisome signs and symptoms come back to emergency room for was discharged in stable condition. Status at Discharge Functional status at discharge: independent ambulation Overall status at discharge: patient is back to baseline Time Spent with Patient Time attestation: Total time spent providing and/or coordinating discharge services:38 min Time spent: Greater than 30 minutes Exam Narrative: Exam Narrative: General: Well developed well nourished patient in NAD HEENT: normocephalic Neck: supple Neuro: Alert and oriented x4 CV:RRR Resp:CTA Abd: Soft, non distended. Pain to palpation to the abdomen. Positive bowel sounds Extremities: No swelling, erythema, or pain to palpation. DS: Data Data Completed and Pending Labs on day of discharge: Labs from last 24 hours 10/22/20 10/22/20 10/21/20 05:26 05:26 11:54 WBC 18.4 H R
[2020-10-22 11:24] VITALS: O2SAT 97
--- NOTE | 2020-11-19 09:19 | PC.NURSE ---
stool cx negative
== END 2020-10-22 12:32 | disposition home or self-care (01) | DRG 387 ==
LOC: ANHED 11:48 → ANH3MED 17:03
PROVIDERS: Nurse Practitioner; Physician Assistant; Admitting Provider Internal Medicine; Emergency Provider Emergency Medicine; PCP Family Medicine; Visit Provider Family Medicine
DX: K51.811 Other ulcerative colitis with rectal bleeding (principal); R55 Syncope and collapse; T50.B95A Adverse effect of other viral vaccines, initial encounter; I10 Essential (primary) hypertension; F41.9 Anxiety disorder, unspecified; N28.1 Cyst of kidney, acquired; R93.5 Abnormal findings on diagnostic imaging of other abdominal regions, including retroperitoneum; K21.9 Gastro-esophageal reflux disease without esophagitis; F17.290 Nicotine dependence, other tobacco product, uncomplicated
CPT/HCPCS: 36415; 74177; 80048; 80053; 81003; 82728; 83605; 83615; 83690; 83735; 84443; 85014; 85018; 85025; 85027; 86140; 87015; 87045; 87046; 87269; 87272; 87324; 87427; 93005; 96361; 96365; 99285; A9270; G0378; J1956; J2543; J2920; J7030; Q9967

== ENCOUNTER 2020-10-27 08:47 | Inpatient (IN) | payer OTHER, SELFPAY ==
--- NOTE | ~2020-10-27 | CT_ITS ---
EXAMINATION: CT abdomen pelvis w con DATE: 10/27/2020 10:50 INDICATION: Upper abdominal pain. TECHNIQUE: Computed tomography (CT) of the abdomen and pelvis was performed with 100 mL Omnipaque 350 intravenous contrast. Automated exposure control and iterative reconstruction technique were employe d. The dose-length product was 1633.71 mGy-cm. COMPARISON: CT abdomen and pelvis 10/20/2020 FINDINGS: The visualized portions of the lung bases demonstrate minimal atelectasis. No pleural effus ion. The heart size is normal. No pericardial effusion. The liver, gallbladder, spleen, adrenal gland s are normal. There is a 2 mm stone in right kidney. There are cysts in left kidney measuring up to 7 mm. There is a 1.7 cm mass in left kidney measuring soft tissue attenuation. There is mild fat stran ding around the pancreas, consistent with acute interstitial pancreatitis. There are no dilated loops of bowel. The appendix is normal. There is mild periportal lymphadenopathy, likely reactive. There i s no free intraperitoneal fluid. There is mild thoracal lumbar spondylosis. IMPRESSION: 1. Mild acute interstitial pancreatitis. 2. 1.7 cm left kidney mass, which may be a hemorrhagic cyst or less likely a solid neoplasm. Consider abdomen MRI without and with contrast. Reviewed, dictated and finalized at location A. [facility] IMPRESSION: 1. Mild acute interstitial pancreatitis. 2. 1.7 cm left kidney mass, which may be a hemorrhagic cyst or less likely a so lid neoplasm. Consider abdomen MRI without and with contrast.
--- NOTE | ~2020-10-27 | US_ITS ---
EXAMINATION: US right upper quadrant DATE: 10/27/2020 17:05 INDICATION: Epigastric abdominal pain. TECHNIQUE: Multiple grayscale and Doppler ultrasound images of the abdomen were obtained. COMPARISON: CT abdomen and pelvis 10/27/2020 FINDINGS: The visualized portion of the head of the pancreas is normal. The liver is normal without f ocal lesion. There is normal flow in main portal vein. The gallbladder is normal in size. There is a 3 mm polyp in the gallbladder, likely a benign cholesterol polyp needing no follow-up. No gallstones or gallbladder wall thickening. There was no sonographic Meyer sign. The common duct is normal and m easures 5 mm. IMPRESSION: 1. No cholelithiasis. Reviewed, dictated and finalized at location A. [facility] IMPRESSION: 1. No cholelithiasis.
[2020-10-27 09:15] VITALS: BP 146/75; PULSE 99; RESP 16; TEMP 36.6; O2SAT 98
[2020-10-27 09:30] LABS: Basophils Absolute Auto 0.1 K/mm3 (0.0-0.1); Basophils Percent Auto 0.3 % (0.2-1.2); Eosinophils Absolute Auto 0.3 K/mm3 (0-0.3); Eosinophils Percent Auto 1.8 % (0-4.4); Hematocrit 42.3 % (42.0-52.0); Hemoglobin 13.7 g/dL (14.0-18.0); Immature Granulocyte Absolute 0.25 K/mm3 (0.00-0.031); Immature Granulocyte Percent A 1.4 % (0-0.5); Lymphocytes Absolute Auto 1.62 K/mm3 (0.9-3.2); Mean Corpuscular HGB Conc 32.4 g/dl (32-36); Mean Corpuscular Hemoglobin 27.5 pg (26-34); Mean Corpuscular Volume 84.8 fl (80-100); Mean Platelet Volume 8.7 fl (7.4-10.4); Monocytes Absolute Auto 1.4 K/mm3 (0.1-0.6); Monocytes Percent Auto 7.5 % (2.6-8.5); Neutrophils Absolute Auto 14.4 K/mm3 (1.3-6.7); Platelet Count Result 525 k/mm3 (150-375); Red Blood Count 4.99 M/mm3 (4.6-6.20); Red Cell Distribution Width 13.2 % (11.5-14.5)
--- NOTE | 2020-10-27 09:30 | ED.ABDPAIN ---
HPI - Abdominal Pain General Chief Complaint: Abdominal Pain Stated Complaint: abd pain Time Seen by Provider: 10/27/20 08:59 Source: patient Mode of arrival: ambulatory Limitations: no limitations History of Present Illness HPI narrative: This is a 35-year-old male that presents the emergency department for upper abdominal pain since yesterday. Reports the pain is squeezing in nature. Yesterday the pain was more intermittent. Today it has become constant. The pain is squeezing in nature. Reports he was recently admitted for a UC flare, but this pain feels different. He is currently finishing Levaquin and is on a steroid taper. He also takes mesalamine daily. He is still having loose stools, but they are less frequent. They still do have some blood in them. Denies fever, nausea, vomiting, dysuria, or hematuria. Related Data Home Medications Medication Instructions Recorded Confirmed citalopram 10 mg PO DAILY 10/20/20 10/20/20 lisinopril-hydrochlorothiazide 1 tablet PO DAILY 10/20/20 10/20/20 mesalamine 4.8 g PO DAILY 10/20/20 10/20/20 pantoprazole 40 mg PO DAILY 10/20/20 10/20/20 Allergies Allergy/AdvReac Type Severity Reaction Status Date / Time No Known Allergies Allergy Verified 10/27/20 09:27 Review of Systems Review of Systems: Narrative: CONSTITUTIONAL: Denies fever GASTROINTESTINAL: Reports abdominal pain and diarrhea. Denies nausea, vomiting GENITOURINARY: Denies dysuria or hematuria. All systems reviewed & are unremarkable except as noted in HPI and below PMFSH Past Medical History Medical History Anxiety Colitis GERD (gastroesophageal reflux disease) HTN (hypertension) Panic attacks Surgical History Surgical History History of colonoscopy [place] teeth extracted 2005 Family History Family History Father Diabetes mellitus Social History Social History (Updated 10/20/20 @ 17:50 by Loren Martinez NP) Social History: The patient is and his is a durable power workers compensation attorney for healthcare. They are expecting their 1st child now. The patient desires to be a full code. Patient continues to use E cigarettes/vaping. 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 He denies any alcohol marijuana or illicit drugs. Years smoked: 6 Smoking status: Current every day smoker Tobacco type: e-cigarettes/vaping Smoking end date: 10/01/12 Additional smoking assessment comments: VAPS DAILY Alcohol intake: former Drinks per week: 14 Substance use: never Substance use type: does not use Gender identity (if verbalized by the patient): Male Spiritual care concerns: No Exam Narrative: Exam Narrative: GENERAL: Well-appearing, obese, and in no acute distress. HEAD: Normocephalic, atraumatic. EYES: EOMI. ENT: Mucous membranes moist. Oropharynx without tonsillar hypertrophy exudate or other lesions. CHEST: Clear to auscultation. No respiratory distress. No wheezes rales or rhonchi HEART: Regular rate and rhythm. No murmur heard. Normal peripheral pulses. ABDOMEN: Soft, nondistended, normal active bowel sounds. Tender to palpation in epigastrium, without guarding EXTREMITIES: Normal range of motion. No edema. SKIN: Warm, dry, no rash. NEURO: No focal deficits. Alert and oriented x3. PSYCH: Normal mood and affect Course Consultations Consultation #1: Spoke with hospitalist about patient and work-up who accepts admission Date: 10/27/20 Time: 12:02 Vital Signs Vital signs: Vital Signs Temperature 98 F 10/27/20 09:15 Pulse Rate 99 10/27/20 09:15 Respiratory Rate 16 10/27/20 09:15 Blood Pressure 146/75 H 10/27/20 09:15 Pulse Oximetry 98 10/27/20 09:15 Temperature 98 F 10/27/20 09:15 Pulse Rate 66 10/27/20 11:39 Respiratory Rate 16 10/27/20 11:39 Blood Pressure
[2020-10-27 09:50] LABS: Alanine Aminotransferase 45 U/L (4-50); Albumin Level 3.7 g/dL (3.5-5.1); Alkaline Phosphatase 67 U/L (38-126); Anion Gap 7 mmol/L (8-16); Aspartate Amino Transferase 21 U/L (17-59); Bilirubin,Total 0.5 mg/dL (0.2-1.3); Blood Urea Nitrogen 15 mg/dL (9-20); Calcium 9.1 mg/dL (8.4-10.2); Carbon Dioxide 30 mmol/L (22-30); Chloride 99 mmol/L (98-107); Estimated CRCL calculation 137 ml/min; Estimated Glomerular Filt Rate > 60; Glucose 103 mg/dL (75-110); Potassium 3.8 mmol/L (3.4-5.0); Sodium 136 mmol/L (137-145)
[2020-10-27 10:01] LABS: Add Urine Microscopic? YES; Appearance Urine Clear (Clear); Bilirubin Urine Negative (Negative); Blood Urine Negative (Negative); Color Urine Yellow (Yellow); Glucose Urine UA Negative (Negative); Ketones Urine Negative (Negative); Leukocyte Esterase Ur Negative LEU/UL (Negative); Mucus Urine Moderate /lpf; Nitrate Urine Negative (Negative); Protein Urine 1+ mg/dL (Negative); Specific Grav Ur 1.026 (1.001-1.035); Squamous Epithelial Cell Urine Rare /hpf (Few); Urobilinogen Urine Negative mg/dL (<2.0)
[2020-10-27] MEDS: SODIUM CHLORIDE 0.9% IV 1,000 ML 999 ML IV CONT (10:05)
[2020-10-27] MEDS: ONDANSETRON INJ 4 MG/2 ML VIAL IV PUSH (10:05)
[2020-10-27] MEDS: MORPHINE SULFATE (*CRX) 4 MG/ML INJ IV PUSH ×4 (10:07→19:51)
[2020-10-27 10:27] LABS: Lipase 5399 U/L (23-300)
[2020-10-27 10:59] LABS: Triglycerides 150 mg/dL (<150)
[2020-10-27 11:39] VITALS: BP 139/81; PULSE 66; RESP 16; O2SAT 100
[2020-10-27] MEDS: SODIUM CHLORIDE 0.9% IV 1,000 ML 125 ML IV CONT ×3 (12:16→22:21)
[2020-10-27 12:20] VITALS: BP 120/68; PULSE 69; RESP 16; O2SAT 99
--- NOTE | 2020-10-27 13:38 | PC.NURSE ---
This patient, Yo Woodruff, was admitted to Medical Room 348-01. Patient/family oriented to hospital policies and general routines including ID bracelet, bed and alarms, visiting hours, pain management, procedures, bathroom and other care routines, personal items, smoking policy, room service/diet, and visiting hours. Information on how to activate the Rapid Response Team has been discussed. Patient/Family are encouraged to report perceived risks to care and to ask questions if they do not understand what they are told or what they should do.
[2020-10-27 13:50] VITALS: BP 129/66; PULSE 68; RESP 18; TEMP 37.3; O2SAT 100; BMI 41.3
--- NOTE | 2020-10-27 15:00 | PM.IMHP ---
H&P: HPI History of Present Illness Date/Time: 10/27/20 15:00 Chief Complaint: Abdominal pain. Narrative: This is a 35-year-old male with ulcerative colitis and hypertension who presented to the emergency department earlier this morning for evaluation of abdominal pain. He is known to the hospitalist service with a recent admission for an ulcerative colitis flare, discharged on 10/22/2020. Since discharge he continues to have some loose stools with a small amount of blood in them, however they have become much less frequent and he is currently finishing a course of levofloxacin and a long steroid taper. Yesterday afternoon, proximally 2.5 hours after receiving his 2nd COVID vaccination, he began belching much more than usual but had no other significant issues. He had a sandwich and chips for dinner and not long thereafter he began experiencing a cramping sensation in the epigastric region although occasionally it was sharp and knife-like. No significant radiation or aggravating/alleviating factors. After taking his evening dose of prednisone he felt some much better and was able to sleep throughout the night however his pain was still there when he woke this morning and was more severe and has been constant since that time. This pain is different to that he experiences with his ulcerative colitis flares and on imaging in the emergency department today he was found to have interstitial pancreatitis. He has no previous history of pancreatitis and no known history of gallbladder disease or gallstones. He has not had much alcohol at all in the past 1 month but before that he was drinking maybe a couple of beers 3 nights a week. No known hypertriglyceridemia. No family history of pancreatitis. He denies fever, chills, nausea, and vomiting. Review of Systems Review of Systems: Narrative: Twelve systems were reviewed with pertinent positives and negatives as per HPI. He has had some mild sweats. No cold or flu symptoms. He denies chest pain and shortness of breath. He occasionally gets heartburn and does take Protonix at home. Reports quite a bit of stress. No history of peptic ulcers. Except as documented, all other systems were reviewed and are negative. [facility] Past Medical History Medical History (Updated 10/27/20 @ 14:37 by Stephanie Montgomery PA-C) Anxiety Gastroesophageal reflux disease Hypertension Ulcerative colitis Surgical History Surgical History (Updated 10/27/20 @ 14:35 by Stephanie Montgomery PA-C) History of colonoscopy [place] teeth extracted (~2005) Family History Family History Father Diabetes mellitus Social History Social History (Updated 10/27/20 @ 14:36 by Stephanie Montgomery PA-C) Social History: The patient is And lives in [place] with his . They are currently expecting their 1st child. 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 He smokes cigarettes for about 6 years and now vapes. No alcohol or illicit substance abuse. He designates his , Chayo, as his surrogate decision maker and he wishes to be a full code. Spiritual care concerns: No Meds Home Medications and Allergies Home Medications Medication Instructions Recorded Confirmed Type citalopram 10 mg PO DAILY 10/20/20 10/27/20 History lisinopril-hydrochlorothiazide 1 tablet PO DAILY 10/20/20 10/27/20 History pantoprazole 40 mg PO DAILY 10/20/20 10/27/20 History levofloxacin 750 mg PO DAILY 6 Days #6 tablet 10/22/20 10/27/20 Rx prednisone 5 mg PO DIRECTED #252 tablet 10/22/20 10/27/20 Rx Allergies Allergy/AdvReac Type Severity Reaction Status Date / Time No Known Allergies Allergy Verified 10/27/20 09:27 Vital Signs Vital Signs - 24 hr 10/27/20 09:15 10/27/20 11:39 10/27/20 12:20 Temperature 98 F Pulse Rate 99 66 69 Respiratory Rate 16 16 16 Blood Pressure 146/75 H 139/81 120/68 Pulse Oximetry 98 100 99 10/27/20 13
--- NOTE | 2020-10-27 15:58 | WPDGICN ---
Assessment and Plan Assessment and plan (1) Acute pancreatitis: Qualifiers: Acute pancreatitis complication: no infection or necrosis Pancreatitis type: unspecified pancreatitis type Qualified Code(s): K85.90 - Acute pancreatitis without necrosis or infection, unspecified Code(s): K85.90 - Acute pancreatitis without necrosis or infection, unspecified Status: Acute Assessment and Plan: Patient appears to have acute pancreatitis. This manifested by abnormal CT scan as well as elevated lipase. Etiology of this remains unclear. Patient has frequent alcohol intake but not to any significant degree. He is not known to have gallstones. None were evident on CT scan. There is some question it could be related to his ulcerative colitis or recent medications. Or perhaps even his viral vaccine. Plan is for patient be NPO gradually advanced diet. We will allow ice chips if tolerated. Reassess dietary intake in the morning on ultrasound of the gallbladder will be obtained. (2) Ulcerative colitis: Code(s): K51.90 - Ulcerative colitis, unspecified, without complications Status: Acute Assessment and Plan: Patient is recovering from recent flare of ulcerative colitis. Now status post a course of empiric antibiotic therapy this will be discontinued. We will continue Lialda and continue to taper his steroids. (3) Leukocytosis: Code(s): D72.829 - Elevated white blood cell count, unspecified Status: Acute Assessment and Plan: Elevated white count likely on the basis of his steroid use. It is possible that is acute pancreatitis may contribute to this as well. We will continue to monitor his white count. (4) Abnormal CT of the abdomen: Code(s): R93.5 - Abnormal findings on diagnostic imaging of other abdominal regions, including retroperitoneum Status: Acute Assessment and Plan: Abnormal CT scan identified. Most consistent with acute pancreatitis. There is a new question of a renal mass. Not evident on previous scans. This may need follow-up at some point perhaps with Urology consult. (5) Anxiety: Code(s): F41.9 - Anxiety disorder, unspecified Status: Chronic GI Consult Note Consult date/time: 10/27/20 15:58 HPI: Yo Woodruff is a 35 year old male seen in evaluation at the request of the hospitalist service. Patient has a distant history of ulcerative colitis. Was initially seen by my service in July of last year because of an alteration in his bowel habits. At that time patient had a narrowing to his stools. Colonoscopy was performed and he was identified as having pancolitis. This was consistent with diffuse ulcerative colitis. At that time patient was started on Lialda 4.8 g p.o. daily. Patient did well until 3 weeks ago when he got is 1st COVID injection. After that he began to have bloody stools and diarrhea. He ultimately was admitted to the hospital [address] scan consistent with pancolitis patient was started on tapering dose of steroids along with Lialda. Patient states he went home Sunday did well for the next 4 days. Yesterday he received his 2nd dose of COVID vaccine. He developed rather severe upper abdominal pain. Because of the intense pain he went to the emergency room last evening. A CT scan was performed consistent with acute pancreatitis. Patient states he has never had pain to this degree before. He states he no longer has blood in his stools. He does continue to have some loose stools however. His family history is noncontributory. Patient denies nausea vomiting. He denies a fever. He does admit to occasional alcohol intake but has had none for at least 3 weeks. He has never previously been identified as having gallstones. Review of Systems Review of Systems: All systems reviewed & are unremarkable except as noted in HPI and below [facility] Past Medical History Medical History (Updated 10/27/20 @ 14:37 by Fl
[2020-10-28] MEDS: MORPHINE SULFATE (*CRX) 4 MG/ML INJ IV PUSH ×3 (00:13→07:43)
[2020-10-28 05:50] LABS: Hematocrit 36.1 % (42.0-52.0); Hemoglobin 11.7 g/dL (14.0-18.0); Mean Corpuscular HGB Conc 32.4 g/dl (32-36); Mean Corpuscular Hemoglobin 27.6 pg (26-34); Mean Corpuscular Volume 85.1 fl (80-100); Mean Platelet Volume 8.7 fl (7.4-10.4); Platelet Count Result 418 k/mm3 (150-375); Red Blood Count 4.24 M/mm3 (4.6-6.20); Red Cell Distribution Width 13.5 % (11.5-14.5); White Blood Count 14.5 K/mm3 (4.5-10.0)
[2020-10-28 06:00] VITALS: BP 135/69; PULSE 85; RESP 12; TEMP 36.6; O2SAT 96
[2020-10-28 06:08] LABS: Alanine Aminotransferase 28 U/L (4-50); Albumin Level 3.1 g/dL (3.5-5.1); Alkaline Phosphatase 61 U/L (38-126); Anion Gap 4 mmol/L (8-16); Aspartate Amino Transferase 13 U/L (17-59); Bilirubin,Total 0.5 mg/dL (0.2-1.3); Blood Urea Nitrogen 10 mg/dL (9-20); Calcium 8.2 mg/dL (8.4-10.2); Carbon Dioxide 26 mmol/L (22-30); Chloride 105 mmol/L (98-107); Estimated CRCL calculation 134 ml/min; Estimated Glomerular Filt Rate > 60; Glucose 91 mg/dL (75-110); Lipase 997 U/L (23-300); Potassium 4.1 mmol/L (3.4-5.0); Sodium 135 mmol/L (137-145)
[2020-10-28 06:15] LABS: CRP 12.7 mg/dL (<1.0)
[2020-10-28] MEDS: SODIUM CHLORIDE 0.9% IV 1,000 ML 125 ML IV CONT ×3 (06:19→22:18)
--- NOTE | 2020-10-28 07:39 | WPDGIPROGNO ---
Progress Note: A&P Assessment and Plan (1) Ulcerative colitis: Code(s): K51.90 - Ulcerative colitis, unspecified, without complications Status: Acute Assessment and Plan: Patient known to have ulcerative colitis. He is status post recent flare. Plan to allow liquid diet as pancreatitis improves. Restart oral prednisone. Continue mesalamine as previously prescribed. (2) Acute pancreatitis: Qualifiers: Acute pancreatitis complication: no infection or necrosis Pancreatitis type: unspecified pancreatitis type Qualified Code(s): K85.90 - Acute pancreatitis without necrosis or infection, unspecified Code(s): K85.90 - Acute pancreatitis without necrosis or infection, unspecified Status: Acute Assessment and Plan: Patient with acute pancreatitis. Lipase is diminished greatly today. Patient now thirsty. Ultrasound revealed no gallstones. Suspect this is idiopathic pancreatitis. But symptoms did occur later in the day after COVID vaccine injection. Making this a possible contributing cause. (3) Leukocytosis: Code(s): D72.829 - Elevated white blood cell count, unspecified Status: Acute Assessment and Plan: Elevated WBC likely related to recent steroid use. (4) Abnormal CT of the abdomen: Code(s): R93.5 - Abnormal findings on diagnostic imaging of other abdominal regions, including retroperitoneum Status: Acute Assessment and Plan: Renal mass described on CT scan. It is uncertain if this is spurious her not may need investigation at some point. (5) Anxiety: Code(s): F41.9 - Anxiety disorder, unspecified Status: Chronic Subjective Date/time seen: 10/28/20 07:39 Patient reports midepigastric pain has improved. He now is able to notice his colitis pain in the lower abdomen a little bit more so. Stools remain loose. Minimal bleeding. Is very hungry and thirsty. Denies nausea vomiting. Can use to pass stool. Review of Systems Review of Systems: All systems reviewed & are unremarkable except as noted in HPI and below Exam Narrative: Exam Narrative: Physical exam reveals patient to be alert. Vital signs stable. HEENT exam unremarkable. Patient remains anicteric. Lungs are clear. Heart without murmur. Abdomen is mildly overweight. Bowel sounds are present soft no localized tenderness today. Patient somewhat uncomfortable diffusely throughout his abdomen. Objective Data Vital Signs Vital Signs: Vital Signs - 24 hr 10/27/20 09:15 10/27/20 11:39 10/27/20 12:20 Temperature 98 F Pulse Rate 99 66 69 Respiratory Rate 16 16 16 Blood Pressure 146/75 H 139/81 120/68 Pulse Oximetry 98 100 99 10/27/20 13:50 10/28/20 06:00 Temperature 99.2 F 98 F Pulse Rate 68 85 Respiratory Rate 18 12 Blood Pressure 129/66 135/69 Pulse Oximetry 100 96 Intake/Output Intake/Output: Intake & Output 10/25/20 10/26/20 10/27/20 10/28/20 23:59 23:59 23:59 23:59 Intake Total 3000 1500 Output Total 1200 Balance 3000 300 Meds/Results Medications: Active Medications Generic Name Dose Route Start Last Admin Trade Name Freq PRN Reason Stop Dose Admin Citalopram Hydrobromide 10 mg 10/28/20 09:00 Citalopram Hydrobromide 10 Mg Tablet PO DAILY CAIO Dextrose 12.5 gm 10/27/20 15:30 Dextrose 50% 25 Gm/50 Ml Syringe IV PUSH PRN PRN Hypoglycemia Protocol Glucagon 1 mg 10/27/20 15:30 Glucagon For Inj 1 Mg Vial IM PRN PRN Hypoglycemia Protocol Glucose 15 gm 10/27/20 15:30 Glucose Oral Gel 15 Gm Of Glucse In 37.5 Gm Tube PO PRN PRN Hypoglycemia Protocol Hydrochlorothiazide 12.5 mg 10/28/20 09:00 Hydrochlorothiazide 12.5 Mg Capsule PO QAM CAIO Sodium Chloride 1,000 mls @ 125 mls/hr 10/27/20 12:05 10/28/20 06:19 Normal Saline Iv IV CONT 125 mls/hr .Q8H CAIO Administration Acetaminophen 1,000 mg in 100 mls @ 400 mls/hr 10/27/20 15:
[2020-10-28] MEDS: MESALAMINE 400 MG DELAYED RELEASE CAPSULE 800 MG PO ×3 (08:47→17:15)
[2020-10-28] MEDS: PANTOPRAZOLE 40 MG TABLET PO (08:48)
[2020-10-28] MEDS: hydroCHLOROthiazide 12.5 MG CAPSULE PO (08:48)
[2020-10-28] MEDS: CITALOPRAM HYDROBROMIDE 10 MG TABLET PO (08:48)
[2020-10-28] MEDS: lisinopriL 20 MG TABLET PO (08:48)
[2020-10-28] MEDS: predniSONE 10 MG TABLET PO (08:49)
[2020-10-28] MEDS: predniSONE 20 MG TABLET PO (08:49)
[2020-10-28] MEDS: predniSONE 5 MG TABLET PO (08:49)
[2020-10-28] MEDS: ENOXAPARIN 40 MG/0.4 ML SYRINGE SUB-Q (08:50)
--- NOTE | 2020-10-28 12:40 | PM.IMPN ---
Progress Note: A&P Assessment and Plan (1) Acute pancreatitis: Qualifiers: Acute pancreatitis complication: no infection or necrosis Pancreatitis type: unspecified pancreatitis type Qualified Code(s): K85.90 - Acute pancreatitis without necrosis or infection, unspecified Code(s): K85.90 - Acute pancreatitis without necrosis or infection, unspecified Status: Acute Assessment and Plan: The patient was recently hospitalized for an ulcerative colitis flare as detailed above, and now has pancreatitis. Etiology of such is not entirely clear; idiopathic as of now, but possibly drug-related as he is on both mesalamine and prednisone - these are to continue per GI recommendations. Patient also had recent 2nd dose of COVID vaccination as possible etiology. Dr. Sanchez is following and appreciate input. Clinically, patient appears to have improved overnight. Continue IV fluids Diet per GI recommendations Monitor Pain control as needed (2) Left renal mass: Code(s): N28.89 - Other specified disorders of kidney and ureter Status: Acute Assessment and Plan: Left renal mass evident on CT imaging this stay and last stay; this needs to be followed up as an outpatient, with an abdominal MRI without and with contrast. We discussed follow up with his PCP for this to be arranged as outpaitent (3) Leukocytosis: Code(s): D72.829 - Elevated white blood cell count, unspecified Status: Acute Assessment and Plan: His white blood cell count is quite elevated but was during his previous stay as well and is likely related to steroids and/or inflammatory response. 14.5k today Continue to monitor (4) Ulcerative colitis: Code(s): K51.90 - Ulcerative colitis, unspecified, without complications Status: Acute Assessment and Plan: He is on mesalamine and long Prednisone taper from his recent UC flare. Will continue mesalamine and prednisone taper per GI recommendations Defer diet to GI Monitor (5) Hypertension: Code(s): I10 - Essential (primary) hypertension Status: Inactive Assessment and Plan: BP improved today with 130s sys most recently continue home medication for now (6) Gastroesophageal reflux disease: Code(s): K21.9 - Gastro-esophageal reflux disease without esophagitis Status: Inactive Assessment and Plan: Continue pantoprazole (7) Anxiety: Code(s): F41.9 - Anxiety disorder, unspecified Status: Chronic Assessment and Plan: No acute issues continue home medication Subjective Date/time seen: 10/28/20 12:40 Interval history: Patient is a 35-year-old male with ulcerative colitis and hypertension who is seen in follow up for treatment of acute pancreatitis; felt to be idiopathic as of now. Patient states he feels better this morning. He tolerated his CLD thus far. His abdominal pain has significantly improved and notes he has not needed IV narcotics since this morning. He feels sweaty and hot this morning but thinks this is due to his prednisone. He does note an isolated left chest/upper abdomen pain, that resolved on it's own; not pleuritic in nature, not made worse with movement; now resolved. No other complaints. Denies headaches, current cp/palpitations, sob/cough, n/v/d/c, dysuria, hematuria, cloudy urine, calf pain/swelling. Review of Systems Review of Systems: All systems reviewed & are unremarkable except as noted in HPI and below Exam Narrative: Exam Narrative: General: Patient sitting upright on couch in no acute distress. HEENT: Normocephalic, EOMI, oral mucosa moist. Cardiovascular: Rate and rhythm are regular. No notable murm
[2020-10-28 13:49] VITALS: BP 117/59; PULSE 66; RESP 16; TEMP 35.9; O2SAT 96
[2020-10-28 21:05] VITALS: BP 122/60; PULSE 54; RESP 14; TEMP 36.6; O2SAT 98
[2020-10-29] MEDS: MORPHINE SULFATE (*CRX) 4 MG/ML INJ IV PUSH (02:43)
[2020-10-29 05:35] LABS: Hematocrit 34.9 % (42.0-52.0); Hemoglobin 11.3 g/dL (14.0-18.0); Mean Corpuscular HGB Conc 32.4 g/dl (32-36); Mean Corpuscular Hemoglobin 28.2 pg (26-34); Mean Platelet Volume 8.6 fl (7.4-10.4); Platelet Count Result 317 k/mm3 (150-375); Red Blood Count 4.01 M/mm3 (4.6-6.20); Red Cell Distribution Width 13.3 % (11.5-14.5); White Blood Count 11.7 K/mm3 (4.5-10.0)
[2020-10-29 05:51] LABS: Alanine Aminotransferase 21 U/L (4-50); Albumin Level 2.7 g/dL (3.5-5.1); Alkaline Phosphatase 55 U/L (38-126); Anion Gap 1 mmol/L (8-16); Aspartate Amino Transferase 13 U/L (17-59); Bilirubin,Total 0.3 mg/dL (0.2-1.3); Blood Urea Nitrogen 8 mg/dL (9-20); Calcium 7.7 mg/dL (8.4-10.2); Carbon Dioxide 27 mmol/L (22-30); Chloride 106 mmol/L (98-107); Estimated CRCL calculation 169 ml/min; Estimated Glomerular Filt Rate > 60; Glucose 94 mg/dL (75-110); Lipase 543 U/L (23-300); Potassium 3.6 mmol/L (3.4-5.0); Sodium 134 mmol/L (137-145)
[2020-10-29 06:00] VITALS: BP 146/82; PULSE 64; RESP 16; TEMP 37.2; O2SAT 98
[2020-10-29] MEDS: SODIUM CHLORIDE 0.9% IV 1,000 ML 125 ML IV CONT (06:44)
[2020-10-29] MEDS: predniSONE 5 MG TABLET PO (07:27)
[2020-10-29] MEDS: predniSONE 10 MG TABLET PO (07:27)
[2020-10-29] MEDS: predniSONE 20 MG TABLET PO (07:28)
[2020-10-29] MEDS: ENOXAPARIN 40 MG/0.4 ML SYRINGE SUB-Q (09:04)
[2020-10-29] MEDS: hydroCHLOROthiazide 12.5 MG CAPSULE PO (09:04)
[2020-10-29] MEDS: PANTOPRAZOLE 40 MG TABLET PO (09:05)
[2020-10-29] MEDS: lisinopriL 20 MG TABLET PO (09:05)
[2020-10-29] MEDS: CITALOPRAM HYDROBROMIDE 10 MG TABLET PO (09:05)
--- NOTE | 2020-10-29 09:32 | WPDGIPROGNO ---
Progress Note: A&P Assessment and Plan (1) Ulcerative colitis: Code(s): K51.90 - Ulcerative colitis, unspecified, without complications Status: Acute Assessment and Plan: Patient with recent diagnosis of ulcerative colitis. Patient now status post trial of antibiotics. Would continue steroid taper by 5 mg every week after discharge. Patient now on 35 mg p.o. daily. Additionally would continue Lialda 4.8 g p.o. daily. Follow-up electively in my office in 2-3 weeks after discharge is encouraged. (2) Acute pancreatitis: Qualifiers: Acute pancreatitis complication: no infection or necrosis Pancreatitis type: unspecified pancreatitis type Qualified Code(s): K85.90 - Acute pancreatitis without necrosis or infection, unspecified Code(s): K85.90 - Acute pancreatitis without necrosis or infection, unspecified Status: Acute Assessment and Plan: Patient's pancreatitis appears to have resolved at this time. Would advance to low-fat diet. Discharge today if at all possible. Etiology of pancreatitis is unclear. Idiopathic pancreatitis felt most likely. But patient did develop symptoms shortly after COVID vaccine suggesting this could be a contributing cause. (3) Abnormal CT of the abdomen: Code(s): R93.5 - Abnormal findings on diagnostic imaging of other abdominal regions, including retroperitoneum Status: Acute Assessment and Plan: CT scan suggest renal lesions. Would recommend follow-up scan or Urology follow-up. (4) Anxiety: Code(s): F41.9 - Anxiety disorder, unspecified Status: Chronic Subjective Date/time seen: 10/29/20 09:32 Patient feels much better today. No longer has epigastric pain. No nausea vomiting. Stools remains somewhat loose. He has rather vague abdominal discomfort he states his consistent with his known ulcerative colitis. Review of Systems Review of Systems: All systems reviewed & are unremarkable except as noted in HPI and below Exam Narrative: Exam Narrative: Physical exam reveals patient to be alert. Vital signs stable. HEENT exam unremarkable. Patient is anicteric. Lungs are clear. Heart without murmur. Abdomen bowel sounds present soft nontender with no hepatosplenomegaly. Previous pain is abated at this time. Objective Data Vital Signs Vital Signs: Vital Signs - 24 hr 10/28/20 13:49 10/28/20 21:05 10/29/20 06:00 Temperature 96.6 F L 97.8 F 98.9 F Pulse Rate 66 54 L 64 Respiratory Rate 16 14 16 Blood Pressure 117/59 L 122/60 146/82 H Pulse Oximetry 96 98 98 Intake/Output Intake/Output: Intake & Output 10/26/20 10/27/20 10/28/20 10/29/20 23:59 23:59 23:59 23:59 Intake Total 3000 4810 1300 Output Total 1200 2 Balance 3000 3610 1298 Meds/Results Medications: Active Medications Generic Name Dose Route Start Last Admin Trade Name Freq PRN Reason Stop Dose Admin Acetaminophen 650 mg 10/28/20 08:12 Acetaminophen 325 Mg Tablet PO Q6H PRN Mild Pain (1-6) Or Fever Citalopram Hydrobromide 10 mg 10/28/20 09:00 10/29/20 09:05 Citalopram Hydrobromide 10 Mg Tablet PO 10 mg DAILY CAIO Administration Dextrose 12.5 gm 10/27/20 15:30 Dextrose 50% 25 Gm/50 Ml Syringe IV PUSH PRN PRN Hypoglycemia Protocol Enoxaparin Sodium 40 mg 10/28/20 09:00 10/29/20 09:04 Enoxaparin 40 Mg/0.4 Ml Syringe SUB-Q 40 mg DAILY CAIO Administration Glucagon 1 mg 10/27/20 15:30 Glucagon For Inj 1 Mg Vial IM PRN PRN Hypoglycemia Protocol Glucose 15 gm 10/27/20 15:30 Glucose Oral Gel 15 Gm Of Glucse In 37.5 Gm Tube PO PRN PRN Hypoglycemia Protocol Hydrochlorothiazide 12.5 mg 10/28/20 09:00 10/29/20 09:04 Hydrochlorothiazide 12.5 Mg Capsule PO 12.5 mg QAM CAIO Administration Sodium Chloride 1,000 mls @ 125 mls/hr 10/27/20 12:05 10/29/20 06:44 Normal Saline Iv IV CONT 125 mls/hr .Q8H CAIO Admini
--- NOTE | 2020-10-29 12:52 | PM.DS ---
DS: Admitting Diagnosis Admitting Diagnosis Admitting Diagnosis: Acute pancreatitis; resolving UC flare DS: Discharge Diagnosis Discharge Diagnosis (1) Acute pancreatitis: Qualifiers: Acute pancreatitis complication: no infection or necrosis Pancreatitis type: unspecified pancreatitis type Qualified Code(s): K85.90 - Acute pancreatitis without necrosis or infection, unspecified Code(s): K85.90 - Acute pancreatitis without necrosis or infection, unspecified Status: Acute Assessment and Plan: The patient was recently hospitalized for an ulcerative colitis flare as detailed above, and now has pancreatitis. Etiology of such is not entirely clear; idiopathic as of now, but possibly drug-related as he is on both mesalamine and prednisone - these are to be continued per GI recommendations as it is felt to be less likely etiology. Patient also had recent 2nd dose of COVID vaccination as possible etiology. Dr. Sanchez is following and appreciate input. Clinically, patient appears to have improved overnight. Okay for discharge from GI standpoint Low fat diet D/c home today Continue home medications F/u with GI per their recommendations (2) Left renal mass: Code(s): N28.89 - Other specified disorders of kidney and ureter Status: Acute Assessment and Plan: Left renal mass evident on CT imaging this stay and last stay; this needs to be followed up as an outpatient, with an abdominal MRI without and with contrast. We discussed follow up with his PCP for this to be arranged as outpatient (3) Leukocytosis: Code(s): D72.829 - Elevated white blood cell count, unspecified Status: Acute Assessment and Plan: His white blood cell count is quite elevated but was during his previous stay as well and is likely related to steroids and/or inflammatory response. 11.7k today (4) Ulcerative colitis: Code(s): K51.90 - Ulcerative colitis, unspecified, without complications Status: Acute Assessment and Plan: He is on mesalamine and long Prednisone taper from his recent UC flare. Will continue mesalamine and prednisone taper per GI recommendations Low fat diet per GI rec for pancreatitis (5) Anxiety: Code(s): F41.9 - Anxiety disorder, unspecified Status: Chronic Assessment and Plan: No acute issues continue home medication DS: Summary Hospital Course Reason for hospitalization: abdominal pain, acute pancreatitis, UC flare Hospital Course: Date of arrival: 10/27/20 Date of discharge: 10/29/20 Patient is a 35-year-old male with ulcerative colitis and hypertension who presented to the emergency department on 10/27 for evaluation of abdominal pain. He had recent hospitalization/discharge from [facility] from 10/20-10/22 for UC flare. He continued to have loose stools after that discharge with small amount of blood. On 10/26, approximately 2.5 hours after receiving his 2nd COVID vaccination, he began belching much more than usual but had no other significant issues. He had a sandwich and chips for dinner and not long thereafter he began experiencing a cramping sensation in the epigastric region although occasionally it was sharp and knife-like. No significant radiation or aggravating/alleviating factors. After taking his evening dose of prednisone he felt some much better and was able to sleep throughout the night however his pain was still there when he woke this morning and was more severe and has been constant since that time. After pain was persistent, he decided to proceed to the ED where he was found to have interstitial pancreatitis on CT abd/pelvis imaging. Dr. Sanchez (GI) was consulted for further input. He was placed on NPO diet and given IV fluids with IV pain contro
== END 2020-10-29 14:15 | disposition home or self-care (01) | DRG 439 ==
LOC: ANHED 12:03 → ANH3MED 13:07
PROVIDERS: Physician Assistant; Admitting Provider Internal Medicine; Emergency Provider Emergency Medicine; PCP Family Medicine; Visit Provider Physician Assistant
DX: K85.00 Idiopathic acute pancreatitis without necrosis or infection (principal); K51.90 Ulcerative colitis, unspecified, without complications; N28.89 Other specified disorders of kidney and ureter; D72.829 Elevated white blood cell count, unspecified; I10 Essential (primary) hypertension; K21.9 Gastro-esophageal reflux disease without esophagitis; F41.9 Anxiety disorder, unspecified; F17.290 Nicotine dependence, other tobacco product, uncomplicated; Z79.899 Other long term (current) drug therapy
CPT/HCPCS: 36415; 74177; 76705; 80053; 81001; 83690; 83735; 84478; 85025; 85027; 86140; 87086; 96361; 96374; 96375; 99285; A9270; J1650; J2270; J2405; J7030; J7512; Q9967

== ENCOUNTER 2020-11-26 08:12 | Outpatient (CLI) | payer OTHER, SELFPAY ==
--- NOTE | ~2020-11-26 | MR_ITS ---
EXAMINATION: MR abdomen wo/w con DATE: 11/26/2020 09:21 INDICATION: Indeterminate left renal lesion on prior CT. TECHNIQUE: Magnetic resonance imaging (MRI) of the abdomen was performed without and with 20 mL Multi gato intravenous contrast. Sequences included coronal T2-weighted SS-FSE, coronal and axial FS 2D-F IESTA, axial STIR FSE, axial T2-weighted SS-FSE, axial T2-weighted FS SS-FSE, axial diffusion-weighte d SE, axial dual-echo T1-weighted FSPGR, and axial and coronal T1-weighted LAVA. Postcontrast axial T 1-weighted LAVA images were obtained in a time course. Postcontrast coronal T1-weighted LAVA images w ere obtained. COMPARISON: CT dated 10/27/2020 FINDINGS: Size is normal. No pericardial or pleural effusion. 1.5 cm fluid attenuation nonenhancing cyst in the right hepatic lobe. Gallbladder, spleen, pancreas, bilateral adrenal glands and right kidney are nor mal. There are couple T2 hyperintense nonenhancing cysts at the lower pole of the left kidney the lar brittany measuring 1.8 cm corresponds to the lesion identified on the prior CT. Visualized portions of the bowels are unremarkable. No pathologically enlarged abdominal lymphadenopathy. Bones are unremarkabl e with normal marrow signal throughout. IMPRESSION: 1. 1.8 cm nonenhancing cyst at the lower pole of the left kidney corresponding to the lesion of kun rn on prior CT. Reviewed, dictated and finalized at location A. [employer] IMPRESSION: 1. 1.8 cm nonenhancing cyst at the lower pole of the left kidney corresponding to the lesion of concern on prior CT.
[2020-11-26 08:46] LABS: Estimated Glomerular Filt Rate > 60
== END 2020-11-26 08:13 | disposition home or self-care (01) ==
LOC: ANHIMG 08:14
PROVIDERS: PCP Family Medicine; Visit Provider Family Medicine
DX: N28.89 Other specified disorders of kidney and ureter (principal)
CPT/HCPCS: 74183; A9577

== ENCOUNTER 2021-06-07 16:31 | Emergency (ER) | payer OTHER, SELFPAY ==
--- NOTE | 2021-06-07 17:19 | PC.NURSE ---
no answer when called x 2 attempts 1710 and 1720
== END 2021-06-08 00:20 | disposition left against medical advice (07) ==
DX: Z53.21 Procedure and treatment not carried out due to patient leaving prior to being seen by health care provider (principal)
CPT/HCPCS: 99199

== ENCOUNTER 2021-06-07 16:46 | Outpatient (CLI) | payer OTHER, SELFPAY ==
[2021-06-07 17:19] LABS: Basophils Absolute Auto 0.1 K/mm3 (0.0-0.1); Basophils Percent Auto 0.4 % (0.2-1.2); Eosinophils Absolute Auto 0.5 K/mm3 (0-0.3); Eosinophils Percent Auto 2.7 % (0-4.4); Hemoglobin 13.6 g/dL (14.0-18.0); Immature Granulocyte Absolute 0.08 K/mm3 (0.00-0.031); Immature Granulocyte Percent A 0.5 % (0-0.5); Lymphocytes Absolute Auto 1.07 K/mm3 (0.9-3.2); Lymphocytes Percent Auto 6.2 % (18.3-44.2); Mean Corpuscular HGB Conc 30.9 g/dl (32-36); Mean Corpuscular Hemoglobin 24.8 pg (26-34); Mean Corpuscular Volume 80.3 fl (80-100); Mean Platelet Volume 9.3 fl (7.4-10.4); Neutrophils Absolute Auto 14.6 K/mm3 (1.3-6.7); Neutrophils Percent Auto 84.2 % (45.5-73.1); Platelet Count Result 474 k/mm3 (150-375); Red Blood Count 5.48 M/mm3 (4.6-6.20); Red Cell Distribution Width 18.2 % (11.5-14.5); White Blood Count 17.3 K/mm3 (4.5-10.0)
[2021-06-07 20:33] LABS: Alanine Aminotransferase 24 U/L (4-50); Albumin Level 4.4 g/dL (3.5-5.1); Alkaline Phosphatase 106 U/L (38-126); Amylase 85 U/L (30-110); Anion Gap 12 mmol/L (8-16); Aspartate Amino Transferase 21 U/L (17-59); Bilirubin,Total 0.4 mg/dL (0.2-1.3); Blood Urea Nitrogen 13 mg/dL (9-20); CRP 6.2 mg/dL (<1.0); Calcium 9.1 mg/dL (8.4-10.2); Carbon Dioxide 22 mmol/L (22-30); Chloride 104 mmol/L (98-107); Estimated Glomerular Filt Rate > 60; Glucose 123 mg/dL (65-110); Lipase 332 U/L (23-300); Potassium 3.8 mmol/L (3.4-5.0); Sodium 138 mmol/L (137-145)
== END 2021-06-07 16:47 | disposition home or self-care (01) ==
LOC: ANHLAB 16:50
PROVIDERS: PCP Family Medicine
DX: R11.2 Nausea with vomiting, unspecified (principal); K51.00 Ulcerative (chronic) pancolitis without complications; K85.90 Acute pancreatitis without necrosis or infection, unspecified; R10.9 Unspecified abdominal pain
CPT/HCPCS: 36415; 80053; 82150; 83690; 85025; 86140

== ENCOUNTER 2021-06-20 15:42 | Outpatient (CLI) | payer OTHER, SELFPAY ==
[2021-06-20 16:49] LABS: Lipase 299 U/L (23-300)
== END 2021-06-20 15:43 | disposition home or self-care (01) ==
PROVIDERS: PCP Family Medicine
DX: R10.9 Unspecified abdominal pain (principal); R19.7 Diarrhea, unspecified; K85.90 Acute pancreatitis without necrosis or infection, unspecified
CPT/HCPCS: 36415; 83690

== ENCOUNTER 2021-06-21 10:02 | Outpatient (NON) | payer OTHER, SELFPAY ==
[2021-06-28 20:11] LABS: Calprotectin, Stool 1830 mcg/g
== END 2021-06-21 10:03 | disposition home or self-care (01) ==
LOC: ANHLAB 10:05
PROVIDERS: PCP Family Medicine
DX: K51.00 Ulcerative (chronic) pancolitis without complications (principal); R10.9 Unspecified abdominal pain; R19.7 Diarrhea, unspecified
CPT/HCPCS: 83993; 87045; 87324; 87427

== ENCOUNTER 2021-09-08 08:52 | Emergency (ER) | payer OTHER, SELFPAY ==
[2021-09-08 09:01] VITALS: BP 152/98; PULSE 77; RESP 16; TEMP 36.9; O2SAT 99
--- NOTE | 2021-09-08 09:53 | ED.URI ---
HPI - URI/Sore Throat General Source: patient and RN notes reviewed Mode of arrival: ambulatory History of Present Illness HPI Narrative: This is a 36-year-old male who presented to urgent care with complaints of a headache, sore throat, fatigue, chills, fever, congestion and a productive cough with greenish sputum. According to patient his symptoms occurred 2 days ago he has been taking NyQuil and DayQuil to relieve his symptoms. He did test negative for Covid with at home test twice. He has come in contact with a Covid positive person within the last 2 weeks. The patient denies SOB, CP, palpitation, extremity numbness, lightheadedness, dizziness, constipation, diarrhea, chills, or fever. MD elicited complaint: fever, cough, sore throat and nasal congestion Related Data Home Medications Medication Instructions Recorded Confirmed lorazepam 0.5 mg PO QID PRN 09/08/21 09/08/21 Allergies Allergy/AdvReac Type Severity Reaction Status Date / Time No Known Allergies Allergy Verified 09/08/21 09:22 Review of Systems Review of Systems: A 14 organ system Review of Systems was performed and pertinent positives included in the HPI, otherwise remaining ROS is negative. [facility] Past Medical History Medical History Anxiety Anxiety Gastroesophageal reflux disease Hypertension Ulcerative colitis Surgical History Surgical History History of colonoscopy [place] teeth extracted (~2005) Family History Family History Father Diabetes mellitus Social History Social History Social History: The patient is And lives in [place] with his . They are currently expecting their 1st child. 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 He smokes cigarettes for about 6 years and now vapes. No alcohol or illicit substance abuse. He designates his , Chayo, as his surrogate decision maker and he wishes to be a full code. Alcohol use details: drinks a couple times a week Spiritual care concerns: No Exam Narrative: GENERAL: This is a well-nourished, well-developed patient, in no apparent distress. HEAD: normocephalic, atraumatic. EYES: PERRL. Sclera clear/white. Vision is grossly intact. EARS: External ears normal, auditory canals clear and without drainage, TMs normal without perforation. Hearing grossly intact. NOSE: External nose normal with no obvious nasal discharge, nares without redness, no rhinorrhea. THROAT: Mucous membranes moist, posterior pharynx edematous. NECK: Neck supple, non-tender without lymphadenopathy, masses or thyromegaly. CARDIOVASCULAR: Regular rate and rhythm without murmurs, gallops, or rubs. RESPIRATORY: Clear to auscultation. Breath sounds equal bilaterally. No wheezes, rales, or rhonchi. GASTROINTESTINAL: Abdomen soft, non-tender, nondistended. Bowel sounds are active. No hepato-splenomegaly, or palpable masses. No guarding. SKIN: warm, intact with no suspicious lesions or rash, good texture and turgor. NEURO: awake, alert, and oriented to person, place and time. There were no obvious focal neurologic abnormalities. Steady gait EXTREMITIES: Normal range of motion. No edema. No calf tenderness. Negative Homans sign bilaterally. BACK: Nontender without deformity or crepitance. No flank tenderness. Course Course Emergency Course: Patient diagnosed with viral infection will go home and use [id number] medication for symptom he will also be tested for Covid [employer] Vital Signs Vital signs: Vital Signs Temperature 98.5 F 09/08/21 09:01 Pulse Rate 77 09/08/21 09:01 Respiratory Rate 16 09/08/21 09:01 Blood Pressure 152/98 H 09/08/21 09:01 Pulse Oximetry 99 09/08/21 09:01 Temperature 98.5 F 09/08/21 09:01 Pulse Rate 77
== END 2021-09-08 10:10 | disposition home or self-care (01) ==
PROVIDERS: Emergency Provider Nurse Practitioner
DX: B34.9 Viral infection, unspecified (principal); Z20.822 Contact with and (suspected) exposure to COVID-19; K21.9 Gastro-esophageal reflux disease without esophagitis; I10 Essential (primary) hypertension; F17.290 Nicotine dependence, other tobacco product, uncomplicated
CPT/HCPCS: 87804; 99212; G0463

== ENCOUNTER 2022-02-01 08:13 | Emergency (ER) | payer OTHER, SELFPAY ==
[2022-02-01 08:21] VITALS: BP 145/79; PULSE 72; RESP 16; TEMP 37.2; O2SAT 96
--- NOTE | 2022-02-01 08:23 | ED.URI ---
HPI - URI/Sore Throat General Chief Complaint: Upper Respiratory Infection Stated Complaint: uri Time Seen by Provider: 02/01/22 08:23 Source: patient Mode of arrival: ambulatory Limitations: no limitations History of Present Illness HPI Narrative: 36-year-old male presents with complaint of cough, chest congestion, nasal congestion, fatigue, chills, body aches and low-grade temp. Has had symptoms for 5 to 6 days. Reports last 2 days is feeling short of breath with exertion, especially when traveling upstairs. Today is first day without fever. Patient is taking [id number] DayQuil NyQuil cold and flu. Reports that he is just not feeling better. Is concerned that he may have pneumonia. Did 2 home COVID test are both negative. All systems reviewed and negative except as noted above. Related Data Home Medications Medication Instructions Recorded Confirmed lorazepam 0.5 mg PO QID PRN 09/08/21 02/01/22 Allergies Allergy/AdvReac Type Severity Reaction Status Date / Time No Known Allergies Allergy Verified 02/01/22 08:22 Review of Systems Review of Systems: CONSTITUTIONAL: Reports fever, chills, or sweats. EYES: Denies visual changes, redness, or discharge. ENT: Reports rhinorrhea, congestion. Denies sore throat, or otalgia. CARDIOVASCULAR: Denies chest pain, palpitations, or edema. RESPIRATORY: Reports cough and dyspnea with exertion. GASTROINTESTINAL: Denies abdominal pain, nausea, vomiting, or diarrhea. GENITOURINARY: Denies dysuria or hematuria. SKIN: Denies rash or itching. MUSCULOSKELETAL: Denies back pain, joint pain, or myalgia. NEUROLOGIC: Denies headache, numbness, or weakness. PSYCHIATRIC: Denies anxiety or depression. All other systems reviewed are negative, except as documented in HPI. [facility] Past Medical History Medical History Anxiety Anxiety Gastroesophageal reflux disease Hypertension Ulcerative colitis Surgical History Surgical History History of colonoscopy [place] teeth extracted (~2005) Family History Family History Father Diabetes mellitus Social History Social History (Reviewed 09/08/21 @ 09:54 by SOFY Salvador Social History: The patient is And lives in [place] with his . They are currently expecting their 1st child. 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 He smokes cigarettes for about 6 years and now vapes. No alcohol or illicit substance abuse. He designates his , Chayo, as his surrogate decision maker and he wishes to be a full code. Alcohol use details: drinks a couple times a week Spiritual care concerns: No Comments At time of signature, agree with nursing past medical, surgical, social and family history. There is no relevant family history pertinent to the presenting complaint. Exam Narrative: GENERAL: This is a well-nourished, well-developed patient. Patient is ill-appearing but in no distress. HEAD: normocephalic, atraumatic. EYES: PERRL. Sclera clear/white. Vision is grossly intact. EARS: External ears normal, auditory canals clear and without drainage, TMs normal without perforation. Hearing grossly intact. NOSE: External nose normal with clear nasal drainage. THROAT: Mucous membranes moist, mild erythema to posterior pharynx with clear postnasal drainage. NECK: Neck supple, non-tender without lymphadenopathy, masses or thyromegaly. CARDIOVASCULAR: Regular rate and rhythm without murmurs, gallops, or rubs. RESPIRATORY: Diffuse expiratory wheezing throughout all lung pisano with sporadic rhonchi.. SKIN: warm, Dry, intact with no suspicious lesions or rash, good texture and turgor. NEURO: awake, alert, and oriented to person, place and time. There were no obvious focal neurologic abnormalities. EXTREMITIES: Normal range of motion to
[2022-02-01 08:27] VITALS: BP 145/79; PULSE 72; RESP 16; TEMP 37.2; O2SAT 96
== END 2022-02-01 08:40 | disposition home or self-care (01) ==
PROVIDERS: Emergency Provider Nurse Practitioner Family
DX: J06.9 Acute upper respiratory infection, unspecified (principal); R06.2 Wheezing; R05.9 Cough, unspecified; I10 Essential (primary) hypertension; F41.9 Anxiety disorder, unspecified
CPT/HCPCS: 99213; G0463

== ENCOUNTER 2022-11-15 08:32 | Outpatient (CLI) | payer OTHER, SELFPAY ==
--- NOTE | 2022-11-15 11:00 | NEURO_ITS ---
Impression: Patient reports a history of bilateral hand numbness. # Moderate bilateral Carpal Tunnel Syndrome. # Normal needle/EMG exam. # Clinical correlation recommended. Motor Nerve Conduction Upper Extremities Median Nerve Conduction Velocity (m/sec) Terminal Latency (msec) Response Voltage(mV) Elbow-Wrist Wrist Elbow Wrist Right 56 6.9 4 4 Left 56 5.1 3 3 Ulnar Nerve Conduction Velocity (m/sec) Terminal Latency (msec) Response Voltage(mV) Above Elbow Below Elbow Wrist Above Elbow Below Elbow Wrist Right 60 59 2.1 8 5 9 Left 59 61 2.4 6 5 7 F-Wave Latency Median (ms) Ulnar (ms) Right 29.5 27.9 Left 29.3 28.4 Sensory Nerve Conduction Upper Extremities Median Nerve Stimulation Terminal Latency (msec) Wrist/Digit Response Voltage (uV) Wrist Right 7.0/6.3 16/9 Left 5.2/5.5 23/17 Ulnar Nerve Stimulation Terminal Latency (msec) Wrist/Digit Response Voltage (uV) Wrist Right 2.4 51 Left 2.8 36 Radial Nerve Terminal Latency (msec) Response Voltage(mV) Right 1.4 43 Left 1.8 25 Left Right Muscles Examined Fibrillation Fasciculation Scarcity Voltage Duration Left Right Left Right Left Right Left Right Left Right Deltoid Biceps X X Brachioradialis Triceps X X Pronator Teres X X Ext Indicis X X Ext Digitorum X X Abd Poll Brev X X 1st Dorsal Interosseus Paraspinals MTDD
== END 2022-11-15 08:33 | disposition home or self-care (01) ==
PROVIDERS: Visit Provider Family Medicine
DX: G56.03 Carpal tunnel syndrome, bilateral upper limbs (principal)
CPT/HCPCS: 95886; 95911